=== PATIENT | male | born 1985 | race Caucasian/White ===

== ENCOUNTER → 2018-09-29 | Outpatient (CLI) | payer OTHER, SELFPAY ==
--- NOTE | 2018-09-29 19:34 | REP ---
Left knee five views : There is no fracture or dislocation. Mineralization and joint spaces are normal. There are no calcifications or foreign bodies. Impression: Negative left knee . Electronically Signed by Soto Summers MD 09/29/2018 07:25 P
== END ==
LOC: M LRY 18:37
PROVIDERS: ATTEND Nurse Practitioner Family
DX: M25.562 Pain in left knee (principal)